=== PATIENT | female | born 1940 | race Caucasian/White ===

== ENCOUNTER → 2021-03-09 | Outpatient (CLI) | payer OTHER ==
[2021-03-09 14:19] LABS: Source, Urine Clean Catch
[2021-03-09 16:30] LABS: Appearance, Urine Hazy (Clear); Bilirubin, Urine Neg (Neg); Blood, Urine 1+ (Neg); Color, Urine Yellow (P-Yellow); Glucose Qualitative, Urine Neg (Neg); Ketones, Urine Neg (Neg); Leukocyte Esterase, Urine 3+ (Neg); Nitrite, Urine Neg (Neg); Protein, Urine Neg (Neg); Specific Gravity, Urine 1.015 (1.003-1.022); Urobilinogen, Urine 1+ (Normal)
[2021-03-09 16:46] LABS: Bacteria Many /hpf; Red Blood Cells, Urine 0-2 /hpf (0-2); Squamous Epithelial Cells Few /hpf (Few); White Blood Cells, Urine 25-50 /hpf (0-5)
== END | disposition home or self-care (01) ==
LOC: LAB SHORT 10:50 → LAB 10:50
PROVIDERS: Physician Assistant
DX: R30.0 Dysuria (principal)
CPT/HCPCS: 81001; 87077; 87086; 87186

== ENCOUNTER 2021-12-09 18:03 | Inpatient (IN) | payer OTHER ==
[~2021-12-09] VITALS: Ht 167.6 cm; Wt 72.0 kg
[2021-12-09 18:26] LABS: BASOPHILS ABSOLUTE AUTO 0.06 K/mm3 (0.00-0.23); BASOPHILS PERCENT AUTO 1 % (0-2); EOSINOPHILS ABSOLUTE AUTO 0.42 K/mm3 (0.00-0.68); EOSINOPHILS PERCENT AUTO 5 % (0-6); Hematocrit 29.9 % (33.0-51.0); Hemoglobin 9.5 g/dL (11.5-16.0); IMMATURE GRAN ABSOLUTE AUTO 0.05 K/mm3 (0.00-0.10); IMMATURE GRAN PERCENT AUTO 1 % (0-1); LYMPHOCYTES ABSOLUTE AUTO 1.96 K/mm3 (0.84-5.20); LYMPHOCYTES PERCENT AUTO 23 % (21-46); MONOCYTES ABSOLUTE AUTO 0.66 K/mm3 (0.16-1.47); MONOCYTES PERCENT AUTO 8 % (4-13); Mean Corpuscular HGB 21.5 pg (26.0-34.0); Mean Corpuscular HGB Conc 31.8 g/dL (31.5-36.5); Mean Corpuscular Volume 68 fL (80-100); Mean Platelet Volume 10.9 fL (9.1-12.4); NEUTROPHILS ABSOLUTE AUTO 5.43 K/mm3 (1.96-9.15); NEUTROPHILS PERCENT AUTO 63 % (41-73); Platelet Count 285 K/mm3 (150-400); RDW Coefficient Variation 15.9 % (11.7-14.2); RDW Standard Deviation 38.4 fL (35.1-46.3); Red Blood Cell Count 4.42 M/mm3 (3.80-5.20); White Blood Cell Count 8.58 K/mm3 (4.00-11.30)
[2021-12-09] MEDS ORDERED: PRAV20 PO (18:36)
[2021-12-09] MEDS ORDERED: METO25ER PO (18:37)
[2021-12-09] MEDS ORDERED: LEVSOD25 PO (18:37)
[2021-12-09] MEDS ORDERED: ASPI81CH PO (18:37)
[2021-12-09 18:43] LABS: Albumin, Blood 3.3 g/dL (3.4-5.0); Albumin/Globulin Ratio 0.9 (0.8-1.8); Bilirubin, Total 0.4 mg/dL (0.1-1.0); Bun/Creatinine Ratio 23.7 (12.0-20.0); Calcium, Blood 8.8 mg/dL (8.5-10.1); Creatinine, Blood 0.63 mg/dL (0.40-1.00); Globulin, Blood 3.6 g/dL (2.2-4.0); Potassium, Blood 3.9 mmol/L (3.5-5.5); Total Protein, Blood 6.9 g/dL (6.4-8.2)
[2021-12-09 21:13] LABS: Influenza A, PCR NEGATIVE (NEGATIVE); Influenza B, PCR NEGATIVE (NEGATIVE); Resp Syncytial Virus, PCR NEGATIVE (NEGATIVE); SARS-Cov-2 (COVID-19) PCR, MMC NEGATIVE (NEGATIVE)
[2021-12-09 21:17] LABS: Percent Saturation 21.6 % (15.0-50.0)
[2021-12-10 03:57] LABS: Hematocrit 32.8 % (33.0-51.0); Hemoglobin 10.3 g/dL (11.5-16.0); Mean Corpuscular HGB 21.3 pg (26.0-34.0); Mean Corpuscular HGB Conc 31.4 g/dL (31.5-36.5); Mean Corpuscular Volume 68 fL (80-100); Mean Platelet Volume 10.7 fL (9.1-12.4); NRBC ABSOLUTE 0.02 K/mm3 (0.00-0.02); NRBC Auto 0.1 /100 WBC (0.0-0.2); Platelet Count 286 K/mm3 (150-400); RDW Coefficient Variation 15.8 % (11.7-14.2); RDW Standard Deviation 37.8 fL (35.1-46.3); Red Blood Cell Count 4.83 M/mm3 (3.80-5.20); White Blood Cell Count 14.45 K/mm3 (4.00-11.30)
--- NOTE | 2021-12-10 06:04 | NUR ---
PATIENT COOPERATIVE AND RECEPTIVE OF CARE AND INTERVENTIONS, REPORTED HTN WHILE IN THE ED DEPT, BP TRENDING DOWN WITH ADEQUATE PAIN CONTROL, OTHER VS STABLE. PATIENT REPORTS ADEQUATE NAUSEA CONTROL WITH MEDICATION VIA EMAR. PATIENT REQUIRES ASSISTANCE TO REPOSITION, HAS NOT ATTEMPTED TO AMBULATE, PUREWICK IN PLACE. PATIENT IS CURRENTLY NPO AND AWAITING SURGERY.
--- NOTE | 2021-12-10 09:30 | NUR ---
PATIENT TO OR IN HER BED
--- NOTE | 2021-12-10 13:59 | NUR ---
PATIENT RETURNED TO ROOM ABOUT 1250. VSS, ON 2L SATS @ 98%. WILL WEAN O2 PRN. X1 AQUACEL IN PALCE TO L HIP. POLAR PACK IN PLACE. TOLERATING PO LIQUIDS AND REG DIET. DENIES PAIN, WIGGLES ALL TOES, HAS FULL SENSATION TO LOWER EXTREMETIES. CALL LIGHT IN REACH.
--- NOTE | 2021-12-10 18:19 | NUR ---
SHIFT SUMMARY PATIENT RETURNED FROM PACU TODAY ABOUT 1400. HAD A L ANUPAMA ARTHROPLASTY HIP PLACED W/ DR DYKES. X1 AQUACEL IN PLACE, C/D/I. POLAR PACK IN PLACE. PATIENT HAS DENIED PAIN SINCE ARRIVAL. TOLERATING PO DIET WELL. AWAITING POST OP VOID, WILL REPORT TO BLADDER SCAN IF PATIENT HAS NOT VOIDED BY 1999. WILL REPORT TO JUAN VO.
--- NOTE | 2021-12-10 18:42 | NUR ---
PATIENT UP TO BSC & CHAIR W/ P SBA GB & FWW. PATIENT WAS ALSO ABLE TO VOID.
--- NOTE | 2021-12-11 05:57 | NUR ---
PATIENT COOPERATIVE AND PLEASANT. VSS, TOLERATING PO INTAKE, AND REPORTS NORMAL VOIDING PATTERN. DENIES NEED FOR PAIN MEDICATION, TRANSFER AND AMBULATE W/ 1 PERSON ASSIST. PT ON HOSPITAL EDUCATION COORDINATOR, SINUS RHYTHM REPORTED, PATIENT REPORTS SLEEPING DURING THE NIGHT AND IS CURRENTLY RESTING IN BED W/ CALL LIGHT IN REACH, WILL MONITOR UNTIL REPORT GIVEN TO ONCOMING SHIFT.
--- NOTE | 2021-12-11 15:04 | NUR ---
PT AMBULATING W/BRICE FROM PT.
[2021-12-11] MEDS ORDERED: ROXICODONE5 MG PO (15:34)
[2021-12-11] MEDS ORDERED: XARELTO10 M1 PO (15:35)
--- NOTE | 2021-12-11 16:09 | NUR ---
DC'D TELE AND RETURNED UNIT.
--- NOTE | 2021-12-11 16:29 | NUR ---
DISCHARGE SUMMARY: A&Ox4. VSS. AMBULATING W/ GB&FWW. TOLERATING PO INTAKE AND FLUIDS. PAIN CONTROLLED WITH PO PRN MEDS. VOIDING AND STOOLING WITHOUT DIFFICULTY. PROVIDED WITH HARD COPY OF RXs AND INSTRUCTED TO CONTACT SURGEON'S OFFICE IF UNABLE TO P/U X[place]ELTO BEFORE THE END OF THE DAY TOMORROW. PT LEFT THE UNIT WITH DISCHARGE PACKET VIA W/C W/ [employer] OFFICER ESCORT TO PARKING LOT FOR TRANSPORT HOME VIA PRIVATE VEHICLE.
--- NOTE | 2021-12-11 17:27 | NUR ---
REVIEWED SN DOCUMENTATION.
== END 2021-12-11 16:00 | disposition home or self-care (01) | DRG 522 ==
LOC: ER 18:03 → SURS 22:48
PROVIDERS: Emergency Medicine; Orthopaedic Surgery; Student in an Organized Health Care Education/Training Program; ADMIT Internal Medicine
PROC: 0SRS0J9 Replacement of Left Hip Joint, Femoral Surface with Synthetic Substitute, Cemented, Open Approach (ICD-10-PCS; principal; 2021-12-10 09:45)
DX: S72.002A Fracture of unspecified part of neck of left femur, initial encounter for closed fracture (principal); I10 Essential (primary) hypertension; E03.9 Hypothyroidism, unspecified; D53.9 Nutritional anemia, unspecified; Z20.822 Contact with and (suspected) exposure to COVID-19; M06.9 Rheumatoid arthritis, unspecified; Z87.891 Personal history of nicotine dependence; Z79.899 Other long term (current) drug therapy; Z79.82 Long term (current) use of aspirin; W18.30XA Fall on same level, unspecified, initial encounter
CPT/HCPCS: 0241U; 36415; 71045; 72170; 73502; 80053; 82728; 83540; 83550; 85025; 85027; 86850; 86900; 86901; 93005; 93010; 97110; 97116; 97162; 97166; 97530; A9270; C1713; C1776; J0171; J0690; J0735; J1100; J1885; J2370; J2405; J2550; J2704; J2795; J3010; J7120